=== PATIENT | female | born 1975 | race African-American/Black ===

== ENCOUNTER 2024-05-26 00:07 | Emergency (ER) | payer MEDICAID, OTHER ==
[~2024-05-26] VITALS: Ht 162.6 cm; Wt 89.6 kg
[2024-05-26 00:12] VITALS: O2SAT 100
[2024-05-26] MEDS: MECLIZINE 12.5MG TABLET PO ONE (03:30)
[2024-05-26] MEDS: MECLIZINE 12.5MG TABLET PO NR (03:56)
[2024-05-26 04:04] LABS: BASOPHILS % 0.8 % (0.0-2.0); EOSINOPHILS % 2.3 % (0.0-5.0); HEMATOCRIT. 43.7 % (36.0-48.0); HEMOGLOBIN. 14.6 g/dL (12.0-16.0); LYMPHOCYTES % 38.3 % (20.0-50.0); MEAN CORPUSCULAR HEMOGLOBIN 31.2 pg (28.0-32.0); MEAN CORPUSCULAR HGB CONC 33.3 g/dL (31.0-37.0); MEAN CORPUSCULAR VOLUME 93.7 fL (81.0-99.0); MEAN PLATELET VOLUME 9.1 fl (7.4-10.4); MONOCYTES % 10.2 % (2.0-8.0); NEUTROPHILS % 48.4 % (40.0-76.0); PLATELET 400 x1000/uL (130-400); RED BLOOD CELL COUNT 4.66 mill/uL (4.2-5.4); RED CELL DISTRIBUTION WIDTH 14.5 % (11.6-14.6); WHITE BLOOD COUNT 9.8 x1000/uL (4.5-11.0)
[2024-05-26 04:20] LABS: CALCIUM 10.7 mg/dL (8.7-10.4)
[2024-05-26 04:25] LABS: CREATININE 1.4 mg/dL (0.6-1.0)
[2024-05-26 04:26] LABS: TROPONIN I HIGH SENSITIVITY 15 ng/L (3.0-34)
[2024-05-26 04:42] LABS: CLARITY URINE CLOUDY (CLEAR); COLOR URINE DARK YELLOW (YELLOW); GLUCOSE URINE NEGATIVE (NEGATIVE); KETONES URINE 1+ (NEGATIVE); LEUKOCYTE ESTERASE URINE 3+ (NEGATIVE); NITRITE URINE NEGATIVE (NEGATIVE); OCCULT BLOOD URINE NEGATIVE (NEGATIVE); PH URINE 5.5 (4.5-8.0); PROTEIN URINE 1+ (NEGATIVE); SPECIFIC GRAVITY URINE 1.023 (1.005-1.030)
[2024-05-26] MEDS ORDERED: MECL-217 MT (04:54)
[2024-05-26 05:15] VITALS: BP 148/90; PULSE 82; RESP 19; TEMP 36.8; O2SAT 100
[2024-05-26 05:24] LABS: SQUAMOUS EPITHELIAL CELL URINE 2+ /lpf (RARE/1+)
[2024-05-26 05:25] LABS: WBC URINE 50-100 /hpf (0-2)
[2024-05-26 05:26] LABS: BACTERIA URINE 2+
== END 2024-05-26 05:16 | disposition home or self-care (01) ==
LOC: ER 00:07
DX: R42 Dizziness and giddiness (principal); J45.909 Unspecified asthma, uncomplicated; I10 Essential (primary) hypertension; Z98.890 Other specified postprocedural states
CPT/HCPCS: 99284; 80048; 81003; 85025; 87086; 84484; 36415; 93005; J8597